=== PATIENT | female | born 1955 | race Caucasian/White ===

== ENCOUNTER 2020-12-22 20:03 | Emergency (ER) | payer MEDICARE, OTHER, SELFPAY ==
[2020-12-22 20:06] VITALS: BP 135/83; PULSE 82; RESP 18; TEMP 36.8; O2SAT 97; BMI 22.6
--- NOTE | 2020-12-22 20:45 | ED_ITS ---
HPI - Animal Bite General Chief Complaint: Animal Bite Stated Complaint: dog bite Source: patient Mode of arrival: ambulatory Limitations: no limitations History of Present Illness HPI narrative: 65-year-old female presents to have a dog bite re-evaluated. Patient was seen at urgent care yesterday because her neighbor's dog bit her on the right calf. States that she is on Augmentin, and feels that she did not get treated properly because she did not suture the wound. She does report drainage from the site and is requesting sutures. Patient does not report any fevers, chills, or any other concerning symptoms. complaint: animal bite Onset (ago): day(s) (2) Animal: dog Description of animal: household pet and immunizations UTD Mechanism: bite Location - Extremities: right: lower leg Pain description: burning Severity scale (1-10): 5 Associated symptoms: discharge from wound Treatments prior to arrival: wound dressing(s) and other (Antibiotics, urgent care assessment) Related Data Patient tetanus UTD: Yes Allergies Allergy/AdvReac Type Severity Reaction Status Date / Time No Known Allergies Allergy Verified 12/22/20 20:06 Review of Systems Review of Systems: Constitutional: No Fever, No Chills ENT/Mouth: No Ear Pain, No Hoarseness, No sore throat Eyes: No Eye Pain, No Swelling, No Redness, No Foreign Body Cardiovascular: No Chest Pain, No SOB Respiratory: No Cough, No Dyspnea Gastrointestinal: No Nausea, No Vomiting, No Diarrhea, No abdominal Pain Genitourinary: No Dysuria, No Hematuria Musculoskeletal: positive right leg pain, No Myalgias, No Joint Swelling Skin: No Skin lacerations, No rash Neuro: No Weakness, No Numbness, No Paresthesias, No Loss of Consciousness, No Dizziness, No Headache Psych: No Anxiety/Panic, No Depression Heme/Lymph: no easy bruising, no Lymphadenopathy Endocrine: No Polyuria, No Polydipsia Yes all other systems are reviewed and are negative [facility] Past Medical History Attestation statement: The following information was validated with the patient. Source: old records reviewed Medical History Anxiety Hypotension Social History Social History Advance Directives: No Advance Directives Information Provided: Yes Physical Exam Vital Signs: Vital Signs: Last Vital Signs Temp 98.2 F 12/22/20 20:06 Pulse 82 12/22/20 20:06 Resp 18 12/22/20 20:06 BP 135/83 12/22/20 20:06 Pulse Ox 97 12/22/20 20:06 Body Mass Index 22.6 Appearance: Alert. Oriented X3. No acute distress. Eyes: Pupils equal, round and reactive to light. ENT: Pharynx normal. Neck: Normal inspection. Neck supple. CVS: Normal heart rate and rhythm. Pulses normal. Respiratory: No respiratory distress. Breath sounds normal. Abdomen: Soft and nontender. Skin: Dog bite mendez to the right calf, Skin warm and dry. Normal skin color. Normal skin turgor. Extremities: No lower extremity edema. Moves all extremities against resistance, gait well balanced well coordinated Neuro: No motor deficit. No sensory deficit. Cranial nerves 2-12 intact. Course Course Course Narrative: 65-year-old female presents with request for evaluation of a dog bite that she was treated for by an urgent care. She was given Augmentin, and was told to keep the wound clean and dressed. Patient states that they did not suture, she is upset that they did not suture because she does have drainage coming from the site. I did explain to her that dog bites are usually not sutured because of risk of infection, and that urgent care treated her appropriately. She is insistent that I suture or glue the wound shut, however her persistent requests were declined. Multiple discussions about infection were not well received by the patient. She was encouraged to continue her antibiotics and to keep the wound clean and dressed. MDM - Animal Bite Differential Diagnosis Differential diagnosis: Likely bite by animal Discharge Plan Discharge Clinical Impression: Bite by animal, Dog bite Patient Disposition: Home, Self-Care Instructions: Animal Bite (ED) Additional Instructions: You were evaluated for a dog bite. Please continue to take the Augmentin that you were prescribed yesterday. Your wound is healing. We cannot suture this wound because it is not recommended to suture animal bites. Please continue to clean your wound. If redness increases, please see your primary care physician or return to the emergency depart Thank you for choosing this emergency department for evaluation. Please follow-up with primary care physician as needed. Return to the emergency department for any new, concerning, or worsening symptoms. Interventions: ED Discharge Assessment Last Done: 12/22/20 20:59 Discharge Date/Time: 12/22/20 21:08
== END 2020-12-22 21:08 | disposition home or self-care (01) ==
PROVIDERS: Emergency Provider Emergency Medicine Emergency Medical Services; PCP Internal Medicine
DX: S81.851D Open bite, right lower leg, subsequent encounter (principal); W54.0XXD Bitten by dog, subsequent encounter; Z48.00 Encounter for change or removal of nonsurgical wound dressing
CPT/HCPCS: 99283